=== PATIENT | female | born 2000 | race Caucasian/White ===

== ENCOUNTER 2024-07-08 15:42 | Outpatient (CLI) | payer BC, SELFPAY ==
--- NOTE | ~2024-07-08 | US_ITS ---
EXAMINATION: US thyroid DATE: 07/08/2024 15:58 INDICATION: Nontoxic goiter TECHNIQUE: Multiple ultrasound images of the thyroid were obtained. COMPARISON: None. FINDINGS: The right thyroid lobe measures 5.3 x 1.6 x 1.6 cm. The left thyroid lobe measures 4.8 x 1.4 x 1.3 c m. Thyroid isthmus measures 3 mm in thickness. No discrete nodules identified. There is normal echote xture, echogenicity and vascular flow throughout the thyroid gland. IMPRESSION: 1. Normal thyroid ultrasound. Reviewed, dictated and finalized at location B. [facility]
== END 2024-07-08 15:43 | disposition home or self-care (01) ==
PROVIDERS: PCP Family Medicine; Visit Provider Physician Assistant Medical
DX: E04.9 Nontoxic goiter, unspecified (principal); R53.82 Chronic fatigue, unspecified
CPT/HCPCS: 76536

== ENCOUNTER 2025-01-23 12:33 | Outpatient (CLI) | payer OTHER, SELFPAY ==
--- NOTE | ~2025-01-23 | US_ITS ---
Abdominal Sonogram: Real-time sonographic imaging of the abdomen was performed. Clinical History: Epigastric pain Findings: The liver appears normal with no evidence of mass lesion or bile duct dilatation. Main por kristy vein demonstrates normal direction of flow. The spleen is normal in size without evidence of foca l lesion. The gallbladder is well distended, and appears normal with no evidence of gallstone or wal l thickening. The common bile duct measures 4 mm. The visualized pancreas, aorta, and IVC are unrema rkable. The right kidney measures 8.9 cm in length and the left kidney measures 9.9 cm. There is no hydronephrosis or renal calculus. Impression: Unremarkable abdominal ultrasound. Reviewed, dictated and finalized at location . Impression: Unremarkable abdominal ultrasound.
== END 2025-01-23 12:34 | disposition home or self-care (01) ==
LOC: MICIMG 12:35
PROVIDERS: PCP Family Medicine; Visit Provider Physician Assistant Medical
DX: R10.13 Epigastric pain (principal)
CPT/HCPCS: 76700